=== PATIENT | female | born 1995 | race Caucasian/White ===

== ENCOUNTER → 2024-04-11 07:54 | Outpatient (REF) | payer BC, SELFPAY | LOC: EMG 07:54 | PROVIDERS: ATTENDING PHYSICIAN Orthopaedic Surgery Hand Surgery; FAMILY PHYSICIAN Nurse Practitioner | DX: M25.532 Pain in left wrist (principal); R20.0 Anesthesia of skin | CPT/HCPCS: 95886; 95909 ==